=== PATIENT | female | born 1975 | race African-American/Black ===

== ENCOUNTER 2019-02-05 23:02 | Emergency (ER) | payer MEDICAID, OTHER ==
[~2019-02-05] VITALS: Ht 172.7 cm; Wt 132.0 kg
--- NOTE | 2019-02-05 23:23 | NUR ---
PT HERE FOR MED CLEARANCE FOR LONG TERM. PT WAS HYPERTENSIVE ON ARRIVAL. PT DENIES CHEST PAIN, [place] OR VISUAL ISSUES. MED STUDENT AT BEDSIDE
[2019-02-06 00:29] VITALS: BP 195/111
== END 2019-02-06 00:31 | disposition home or self-care (01) ==
LOC: ED 23:59
DX: I10 Essential (primary) hypertension (principal); F17.200 Nicotine dependence, unspecified, uncomplicated
CPT/HCPCS: 99283